=== PATIENT | female | born 1965 | race Caucasian/White ===

== ENCOUNTER 2019-09-01 12:48 | Emergency (ER) | payer BC, OTHER ==
[~2019-09-01] VITALS: Ht 160 cm; Wt 72.5 kg
--- NOTE | 2019-09-01 12:50 | ED General ---
General Stated Complaint: VOMITING; DIARRHEA History of Present Illness Date Seen by Provider: Sep 01, 2019 Time Seen by Provider: 13:00 Initial Comments Patient is a 53-year-old female who comes to the emergency department today complaining of nausea and vomiting and diarrhea. She has been having symptoms over the last week. She reports emesis too numerous episodes to count. Also has loose brown watery diarrhea. No other family members have been ill. No recent travel. She denies abdominal pain or chest pain or shortness of breath. No fever. No viral symptoms. Patient was evaluated by her primary care doctor and told she had some sort of bowel infection. She was started on 2 different antibiotics which she states she has been tolerating but her symptoms have not improved. Allergies and Home Medications Allergies Coded Allergies: No Known Drug Allergies (Unverified , 09/01/19) Home Medications Ondansetron 4 Mg Tab.rapdis, 4 MG PO Q6H PRN for NAUSEA/VOMITING Prescribed by: JUNG BURGOS on 09/01/19 1519 Potassium Chloride 20 Meq/15 Ml Liquid, 20 MEQ PO DAILY Prescribed by: JUNG BURGOS on 09/01/19 1521 Patient Home Medication List Home Medication List Reviewed: Yes Review of Systems Review of Systems Constitutional: no symptoms reported EENTM: no symptoms reported Respiratory: no symptoms reported Cardiovascular: no symptoms reported Gastrointestinal: see HPI Genitourinary: no symptoms reported Musculoskeletal: no symptoms reported Skin: no symptoms reported All Other Systems Reviewed Negative Unless Noted: Yes Physical Exam Vital Signs Vital Signs - First Documented 09/01/19 12:55 Temp 37.6 Pulse 114 Resp 18 B/P (MAP) 116/73 (87) Pulse Ox 100 O2 Delivery Room Air Capillary Refill : Height, Weight, BMI Height: '" Weight: lbs. oz. kg; BMI Method: General Appearance: No Apparent Distress, WD/WN HEENT: PERRL/EOMI, Normal ENT Inspection Neck: Full Range of Motion Respiratory: Lungs Clear, Normal Breath Sounds Cardiovascular: Regular Rate, Rhythm, No Edema Gastrointestinal: Non Tender, Soft Extremity: Normal Capillary Refill Neurologic/Psychiatric: Alert, Oriented x3 Skin: Normal Color Progress/Results/Core Measures Suspected Sepsis SIRS Temperature: Pulse: Respiratory Rate: Laboratory Tests 09/01/19 13:10: White Blood Count 12.0H Blood Pressure / Mean: Laboratory Tests 09/01/19 13:10: Creatinine 1.20, Platelet Count 151, Total Bilirubin 1.9H Results/Orders Lab Results Laboratory Tests Test 09/01/19 13:10 Range/Units White Blood Count 12.0 H 4.3-11.0 10^3/uL Red Blood Count 3.66 L 4.35-5.85 10^6/uL Hemoglobin 12.8 11.5-16.0 G/DL Hematocrit 37 35-52 % Mean Corpuscular Volume 100 H 80-99 FL Mean Corpuscular Hemoglobin 35 H 25-34 PG Mean Corpuscular Hemoglobin Concent 35 32-36 G/DL Red Cell Distribution Width 14.2 10.0-14.5 % Platelet Count 151 130-400 10^3/uL Mean Platelet Volume 10.7 H 7.4-10.4 FL Neutrophils (%) (Auto) 70 42-75 % Lymphocytes (%) (Auto) 5 L 12-44 % Monocytes (%) (Auto) 16 H 0-12 % Eosinophils (%) (Auto) 0 0-10 % Basophils (%) (Auto) 0 0-10 % Neutrophils # (Auto) 8.4 H 1.8-7.8 X 10^3 Lymphocytes # (Auto) 0.6 L 1.0-4.0 X 10^3 Monocytes # (Auto) 2.0 H 0.0-1.0 X 10^3 Eosinophils # (Auto) 0.0 0.0-0.3 10^3/uL Basophils # (Auto) 0.0 0.0-0.1 10^3/uL Neutrophils % (Manual) 70 % Lymphocytes % (Manual) 11 % Monocytes % (Manual) 6 % Eosinophils % (Manual) 0 % Basophils % (Manual) 0 % Band Neutrophils 12 % Nucleated Red Blood Cells 1 Toxic Granulation 2+ Sodium Level 130 L 135-145 MMOL/L Potassium Level 2.3 *L 3.6-5.0 MMOL/L Chloride Level 85 L 98-107 MMOL/L Carbon Dioxide Level 29 21-32 MMOL/L Anion Gap 16 H 5-14 MMOL/L Blood Urea Nitrogen 10 7-18 MG/DL Creatinine 1.20 0.60-1.30 MG/DL Estimat Glomerular Filtration Rate 47 BUN/Creatinine Ratio 8 Glucose Level 141 H 70-105 MG/DL Calcium Level 9.3 8.5-10.1 MG/DL Corrected Calcium 9.3 8.5-10.1 MG/DL Total Bilirubin 1.9 H 0.1-1.0 MG/DL Aspartate Amino Transf (AST/SGOT) 54 H 5-34 U/L Alanine Aminotransferase (ALT/SGPT) 28 0-55 U/L Alkaline Phosphatase 105 40-136 U/L Total Protein 8.0 6.4-8.2 GM/DL Albumin 4.0 3.2-4.5 GM/DL Lipase 51 8-78 U/L My Orders Orders - JUNG BURGOS DO Ed Iv/Invasive Line Start (09/01/19 13:03) Cbc With Automated Diff (09/01/19 13:03) Comprehensive Metabolic Panel (09/01/19 13:03) Lipase (09/01/19 13:03) Prochlorperazine Injection (Compazine In (09/01/19 13:30) Diphenhydramine Injection (Benadryl Inje (09/01/19 13:30) Manual Differential (09/01/19 13:10) Ns Iv 1000 Ml (Sodium Chloride 0.9%) (09/01/19 13:30) Urinalysis (09/01/19 13:25) Diphenoxylate/Atropine Tablet (Lomotil T (09/01/19 13:45) Potassium Chloride (Tablet) (K Dur Table (09/01/19 14:00) Ns Iv 1000 Ml (Sodium Chloride 0.9%) (09/01/19 14:15) Potassium Chloride (Tablet) (K Dur Table (09/01/19 15:00) Ns Iv 1000 Ml (Sodium Chloride 0.9%) (09/01/19 14:35) Medications Given in ED Current Medications Medications Dose Ordered Sig/Sathya Route Start Time Stop Time Status Last Admin Dose Admin Diphenhydramine HCl 25 mg ONCE ONCE IV 09/01/19 13:30 09/01/19 13:31 DC 09/01/19 13:32 25 MG Diphenoxylate HCl/ Atropine 1 ea ONCE ONCE PO 09/01/19 13:45 09/01/19 13:46 DC 09/01/19 13:47 1 EA Potassium Chloride 40 meq ONCE ONCE PO 09/01/19 14:00 09/01/19 14:01 DC 09/01/19 14:35 40 MEQ Potassium Chloride 40 meq ONCE ONCE PO 09/01/19 15:00 09/01/19 15:01 DC 09/01/19 15:08 40 MEQ Prochlorperazine Edisylate 10 mg ONCE ONCE IV 09/01/19 13:30 09/01/19 13:31 DC 09/01/19 13:32 10 MG Vital Signs/I&O 09/01/19 12:55 Temp 37.6 Pulse 114 Resp 18 B/P (MAP) 116/73 (87) Pulse Ox 100 O2 Delivery Room Air Capillary Refill : Progress Note : Time: 13:00 Progress Note Patient is seen and examined. Today, we will place IV and give IV fluids. We'll check basic labs. Patient does not have chest pain. The physical examination of her abdomen is entirely benign with no tenderness and revealing a soft abdomen with hyperactive bowels. No right upper quadrant pain. 14:05: Patient is re-examined. Currently feeling improved. IVF's running. K noted to be low on labs and she has small anion gap with mild hyponatremia. Patient is dehydrated. Additional NS bolus ordered and will give 80meq of K+ in two PO doses. 15:25: Patient currently feeling much improved. She tolerates by mouth challenge without difficulty. She has no pain and did not have pain during the ED visit today. I did not feel imaging of her stomach was indicated based on her physical exam today. Overall, suspect gastroenteritis as the source for her presenting symptoms. Plan is for discharge home. She was given a total of 80 mEq of potassium in the ER. She is placed on 20 mg once daily over the next 5 days. She is provided Zofran to use when necessary nausea and vomiting at home. Recommended she follow up with her primary care doctor or otherwise return precautions were discussed prior to discharge. She was accompanied by her today who is driving her home. Departure Impression Primary Impression: Gastroenteritis Additional Impression: Hypokalemia Disposition: 01 HOME, SELF-CARE Condition: Improved Departure-Patient Inst. Scripts Potassium Chloride (Potassium Chloride) 20 Meq/15 Ml Liquid 20 MEQ PO DAILY for 5 Days, #75 ML Prov: JUNG BURGOS DO 09/01/19 Ondansetron (Ondansetron Odt) 4 Mg Tab.rapdis 4 MG PO Q6H PRN for NAUSEA/VOMITING, #10 TAB Prov: JUNG BURGOS DO 09/01/19 JUNG BURGOS DO Sep 01, 2019 12:50 POS
[2019-09-01 13:21] LABS: HEMATOCRIT 37 % (35-52); HEMOGLOBIN 12.8 G/DL (11.5-16.0); MEAN CORPUSCULAR HEMOGLOBIN 35 PG (25-34); MEAN CORPUSCULAR HGB CONC 35 G/DL (32-36); MEAN CORPUSCULAR VOLUME 100 FL (80-99); MEAN PLATELET VOLUME 10.7 FL (7.4-10.4); PLATELET COUNT 151 10^3/uL (130-400); RED CELL DISTRIBUTION WIDTH 14.2 % (10.0-14.5)
[2019-09-01 13:22] LABS: BASOPHILS % (AUTO) 0 % (0-10); EOSINOPHILS % (AUTO) 0 % (0-10); LYMPHOCYTES # (AUTO) 0.6 X 10^3 (1.0-4.0); LYMPHOCYTES % (AUTO) 5 % (12-44); MONOCYTES % (AUTO) 16 % (0-12); NEUTROPHILS # (AUTO) 8.4 X 10^3 (1.8-7.8); NEUTROPHILS % (AUTO) 70 % (42-75)
[2019-09-01] MEDS ORDERED: PROCHLORPERAZINE 10 MG/2ML INJ (COMPAZINE) IV ONE (13:30)
[2019-09-01] MEDS ORDERED: diphenhydrAMINE 50 MG/ML INJ (BENADRYL) IV ONE (13:30)
[2019-09-01] MEDS: NS IV 1000 ML 1,000 ML IV SCH ×2 (13:31→14:35)
[2019-09-01 13:41] LABS: BILIRUBIN,TOTAL 1.9 MG/DL (0.1-1.0); CALCIUM 9.3 MG/DL (8.5-10.1); CREATININE SERUM 1.2 MG/DL (0.60-1.30); POTASSIUM 2.3 MMOL/L (3.6-5.0)
[2019-09-01] MEDS ORDERED: DIPHENOXYLATE/ATROPINE 2.5MG/0.025MG (LOMOTIL) TAB PO ONE (13:45)
[2019-09-01] MEDS ORDERED: KCL 20 MEQ TAB (K-DUR) PO ONE ×2 (14:00→15:00)
[2019-09-01] MEDS ORDERED: NS IV 1000 ML 1,000 ML IV SCH ×2 (14:15→14:35)
[2019-09-01 14:37] LABS: BAND NEUTROPHILS 12 %; BASOPHILS % (MANUAL) 0 %; EOSINOPHILS % (MANUAL) 0 %; LYMPHOCYTES % (MANUAL) 11 %; MONOCYTES % (MANUAL) 6 %; NEUTROPHILS % (MANUAL) 70 %
[2019-09-01 14:38] LABS: NUCLEATED RED BLOOD CELLS 1; TOXIC GRANULATION/VACUOLAZATIO 2+
[2019-09-01] MEDS ORDERED: ONDA4TAB11 PO (15:19)
[2019-09-01] MEDS ORDERED: POTA20LI3 PO (15:21)
[2019-09-01 15:30] VITALS: BP 119/70
[2019-09-01] MEDS ORDERED: ACETAMINOPHEN 500 MG TAB (TYLENOL) ONE (16:04)
[2019-09-01] MEDS ORDERED: ACETAMINOPHEN 500 MG TAB (TYLENOL) PO ONE (16:15)
[2019-09-01 16:56] VITALS: BP 125/67
== END 2019-09-01 16:56 | disposition home or self-care (01) ==
LOC: ER FS 12:50
DX: K52.9 Noninfective gastroenteritis and colitis, unspecified (principal); E87.6 Hypokalemia
CPT/HCPCS: 36415; 80053; 83690; 85007; 85027; 96361; 96374; 96375

== ENCOUNTER → 2019-09-26 | Outpatient (CLI) | payer BC ==
[~2019-09-26] MED LIST: ONDA4TAB11 PO; POTA20LI3 PO
--- NOTE | 2019-09-26 11:17 | Diagnostic Imaging Report ---
Indication: Cough x1 month PA and lateral chest FINDINGS: Heart size and pulmonary vascularity are normal. Lungs are clear. There are no effusions or pneumothoraces. IMPRESSION: Negative chest Dictated by: Dictated on workstation # [id number]
== END ==
LOC: RAD FS 11:01
PROVIDERS: ATTEND Family Medicine
DX: R11.2 Nausea with vomiting, unspecified (principal); R63.4 Abnormal weight loss; R05 Cough
CPT/HCPCS: 71046